=== PATIENT | male | born 2000 | race Caucasian/White ===

== ENCOUNTER 2024-11-02 17:27 | Inpatient (IN) | payer SELFPAY ==
[2024-11-02 17:43] VITALS: BP 129/85; PULSE 89; RESP 18; TEMP 37.1; O2SAT 99
[2024-11-02 17:46] VITALS: BMI 33.0
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
[2024-11-02] MEDS: nicotine 2 mg Gum BUCCAL ×2 (18:15→21:24)
[2024-11-02] MEDS: calcium carbonate 500 mg Chew Tablet 1000 MG PO (21:24)
[2024-11-02] MEDS: trazodone 50 mg Tablet PO (21:24)
[2024-11-02 21:28] VITALS: BP 126/79; PULSE 62; RESP 18; TEMP 36.7; O2SAT 98
[2024-11-03 06:00] VITALS: BP 114/60; PULSE 69; RESP 18; TEMP 36.5; O2SAT 96
[2024-11-03 14:00] VITALS: BP 136/66; PULSE 87; RESP 16; TEMP 36.6; O2SAT 99
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
[2024-11-03] MEDS: nicotine 4 mg lozenge MUCOUS MEM (16:16)
[2024-11-03] MEDS: fluoxetine 10 mg Capsule PO (16:16)
[2024-11-03 19:52] VITALS: BP 132/81; PULSE 77; RESP 18; TEMP 36.8; O2SAT 97
[2024-11-04 06:00] VITALS: BP 127/85; PULSE 91; RESP 18; TEMP 36.5; O2SAT 98; BMI 30.3
[2024-11-04] MEDS: fluoxetine 20 mg Capsule PO (08:38)
--- NOTE | 2024-11-04 12:14 | W.PM.NPUPNS ---
Subjective NPU Subjective: Patient is a 24-year-old male with major depressive disorder admitted with suicidal ideation. The patient continued to endorse having suicidal thoughts. He had reported that he had been isolative. He had described significant stressors being a single father. He had reported some struggles with concentration. He had isolated himself on the milieu and continued to struggle with completion of activities of daily living. He denied any psychotic symptoms at this time. He reported no side effects from the Prozac today. Mental Status Exam MSE Comments: The patient is a casually dressed white male who appeared his stated age. His gait appeared within normal limits. His hygiene was fair. There was no evidence of any abnormal involuntary motor movements, tics, or tremors appreciated. There was prominent psychomotor retardation. His speech was monotone in quality with normal rate and prosody. His thought process was linear ,logical and goal-directed. His thought content showed no evidence of homicidal ideation. He endorsed suicidal ideation with a plan to cut his wrists. There was no clear evidence of delusional thinking. He did not appear to be responding to internal stimuli. His mood was described as depressed. His affect remained restricted in range and mood congruent. His recent and remote memory were grossly intact as he was an adequate historian. He was alert and oriented to person place time and situation. His insight appeared poor. His judgment appeared poor. His impulse control appeared limited. His fund of knowledge appeared average. . His attention span appeared fair. Vitals/I&O/Wt Last Vital Signs Temp 97.7 F 11/04/24 06:00 Pulse 91 11/04/24 06:00 Resp 18 11/04/24 06:00 BP 127/85 11/04/24 06:00 Pulse Ox 98 11/04/24 06:00 O2 Del Method Room Air 11/04/24 06:00 Weight last 48 hrs Weight 95.878 kg Weight 104.326 kg A&P Assessment and plan (1) MDD (major depressive disorder), recurrent severe, without psychosis: Plan 24-year-old male who presents with severe depression with suicidal ideation with 1 previous trial of Effexor for 3 days with some unspecified side effects. He was agreeable to a trial of an antidepressant and would likely benefit from a brief stay here with a long-term plan to begin to support patient with outpatient psychotherapy and medication management in his home area. #1.? Engage patient in individual milieu and group therapy. #2?? Recommend sober living treatment at the highest level of care to which the patient is willing to commit #3???Increase prozac to 20mg daily. #4?? TO-15 minute checks? #5?? Will attempt to gather collateral information Involuntary Hold Information 96 Hour Hold: 96 Hour Involuntary Admission: No Attestations NPU Medical Necessity Statement*: Inpatient hospitalization is medically necessary and deemed to ?be ?the clinically appropriate intervention ?at this time.? We will monitor/initiate medications and make changes as indicated.? The patient?s likely length of stay 3-5 days. Coding Level of Care Code Acute Code for g Fwd Diagnoses MDD (major depressive disorder), recurrent severe, without psychosis F33.2
[2024-11-04 14:00] VITALS: BP 127/75; PULSE 82; RESP 16; TEMP 36.7; O2SAT 98
[2024-11-04] MEDS: calcium carbonate 500 mg Chew Tablet 1000 MG PO (18:42)
[2024-11-04 19:40] VITALS: BP 116/71; PULSE 95; RESP 18; TEMP 36.7; O2SAT 98
[2024-11-04] MEDS: hyDROXYzine 25 mg Capsule 50 MG PO (20:05)
[2024-11-04] MEDS: trazodone 50 mg Tablet PO (20:05)
[2024-11-05 06:00] VITALS: BP 119/81; PULSE 75; RESP 18; TEMP 36.6; O2SAT 99
--- NOTE | 2024-11-05 08:21 | PC.NURSE ---
IN BED RESTING. DENIES SI/HI AND AVH AT THIS TIME. RATES PAIN 5/10 IN BACK BUT DECLINES TAKING ANY PAIN MEDICATIONS. RATES ANXIETY 0/10 AND DEPRESSION 7/10. PROZAC 20 MG WAS RESTARTED AND PT IS TAKING PRESCRIBED. REPORTS HE SLEPT WELL. AFFECT IS FLAT AND DEPRESSED MOOD OBSERVED. ISOLATES AND WITHDRAWN TO ROOM. SUPPORT VOICED.
[2024-11-05] MEDS: fluoxetine 20 mg Capsule PO (08:51)
--- NOTE | 2024-11-05 11:59 | W.PM.NPUPNS ---
Subjective NPU Subjective: Patient presented today reporting that life is okay. He reports he feels a little better than when he came in because he just got off the phone with her friend but otherwise reported that he felt about the same. We discussed the fact that his Prozac had been increased to 20 mg p.o. daily and that we would expect to get some improvement soon. He reports that he was told that it might take up to 6 weeks and we explained that it would take 6 weeks for improvement occur it would take 6 weeks to get to maximum benefit at this dose. He denied any current side effects to the medication and we discussed hopefully looking at discharge in the next 48 hours. Mental Status Exam MSE Comments: This is an overweight versus obese white male in hospital scrubs with limited grooming and eye contact. No abnormal movements except for psychomotor retardation. Mostly cooperative with exam in mild distress. Speech was decreased rate and volume spoken very softly and effeminate. Mood described as about the same, affect slightly subdued. His thought process was linear ,logical and goal-directed. His thought content showed no evidence of homicidal ideation. He endorsed resolving suicidal ideation with a plan to cut his wrists. There was no clear evidence of delusional thinking. He did not appear to be responding to internal stimuli. Attention and concentration were intact and memory appeared reliable but none were formally tested. He was alert and oriented to person place time and situation. His insight appeared poor. His judgment appeared poor. His impulse control appeared limited. His fund of knowledge appeared average. . Vitals/I&O/Wt Last Vital Signs Temp 97.9 F 11/05/24 06:00 Pulse 75 11/05/24 06:00 Resp 18 11/05/24 06:00 BP 119/81 11/05/24 06:00 Pulse Ox 99 11/05/24 06:00 O2 Del Method Room Air 11/05/24 06:00 Weight last 48 hrs Weight 95.878 kg A&P Assessment and plan (1) MDD (major depressive disorder), recurrent severe, without psychosis: Plan 24-year-old male who presents with severe depression with suicidal ideation with 1 previous trial of Effexor for 3 days with some unspecified side effects. He was agreeable to a trial of an antidepressant and would likely benefit from a brief stay here with a long-term plan to begin to support patient with outpatient psychotherapy and medication management in his home area. 1. Encourage individual, group and milieu therapy. 2.??Recommend sober living treatment at the highest level of care to which the patient is willing to commit 3.??Increased prozac to 20mg daily. 4.??Every 15 minute checks for safety? 5.??Will attempt to gather collateral information Involuntary Hold Information 96 Hour Hold: 96 Hour Involuntary Admission: No Attestations NPU Medical Necessity Statement*: Inpatient hospitalization is medically necessary and the clinically appropriate intervention at this time.? We will monitor/initiate medications and make changes as indicated.? The patient?s likely length of stay 3-5 days. Coding Level of Care Code Acute Code for g Fwd Diagnoses MDD (major depressive disorder), recurrent severe, without psychosis F33.2
[2024-11-05 14:00] VITALS: BP 122/75; PULSE 67; RESP 16; TEMP 36.3; O2SAT 98
[2024-11-05 20:06] VITALS: BP 119/67; PULSE 64; RESP 16; TEMP 36.9; O2SAT 98
[2024-11-05] MEDS: acetaminophen 325 mg Tablet 650 MG PO (20:50)
[2024-11-06 06:00] VITALS: BP 94/57; PULSE 67; RESP 16; TEMP 36.4; O2SAT 98
[2024-11-06] MEDS: fluoxetine 20 mg Capsule PO (08:12)
--- NOTE | 2024-11-06 11:45 | W.PM.NPUPNS ---
Subjective NPU Subjective: Patient presented today reporting that he is feeling better and more optimistic about the possibility of discharge. We discussed the risk benefits and alternatives of discharging tomorrow and he understood and agreed to proceed as is documented in this note. We talked about keeping the Prozac at 20 and he reported he was going to call his father to see if his father could come from [place] he [place] and pick him up. We discussed working with the social work team with appointments and follow-up. He denied any side effects to the medication and reported that he was feeling a significant bit better. Mental Status Exam MSE Comments: This is an overweight versus obese white male in hospital scrubs with limited grooming and eye contact. No abnormal movements except for mild psychomotor retardation. Mostly cooperative with exam in mild distress. Speech was decreased rate and volume spoken very softly and effeminate. Mood described as better, affect slightly subdued but brighter with a reactive affect. His thought process was linear ,logical and goal-directed. He denied suicidal or homicidal ideation. There was no clear evidence of delusional thinking. He did not appear to be responding to internal stimuli. Attention and concentration were intact and memory appeared reliable but none were formally tested. He was alert and oriented to person place time and situation. His insight appeared poor. His judgment appeared poor. His impulse control appeared limited. His fund of knowledge appeared average. . Vitals/I&O/Wt Last Vital Signs Temp 97.6 F 11/06/24 06:00 Pulse 67 11/06/24 06:00 Resp 16 11/06/24 06:00 BP 94/57 11/06/24 06:00 Pulse Ox 98 11/06/24 06:00 O2 Del Method Room Air 11/06/24 06:00 A&P Assessment and plan (1) MDD (major depressive disorder), recurrent severe, without psychosis: Plan 24-year-old male who presents with severe depression with suicidal ideation with 1 previous trial of Effexor for 3 days with some unspecified side effects. He was agreeable to a trial of an antidepressant and would likely benefit from a brief stay here with a long-term plan to begin to support patient with outpatient psychotherapy and medication management in his home area. 1. Encourage individual, group and milieu therapy. 2.??Recommend sober living treatment at the highest level of care to which the patient is willing to commit 3.??Increased prozac to 20mg daily. 4.??Every 15 minute checks for safety? 5.??Tentative plan for discharge in the morning. Involuntary Hold Information 96 Hour Hold: 96 Hour Involuntary Admission: No Attestations NPU Medical Necessity Statement*: Inpatient hospitalization is medically necessary and the clinically appropriate intervention at this time.? We will monitor/initiate medications and make changes as indicated.? Tentative plan for discharge tomorrow.. Coding Level of Care Code Acute Code for Chg Fwd Diagnoses MDD (major depressive disorder), recurrent severe, without psychosis F33.2
[2024-11-06] MEDS: ibuprofen 600 mg Tablet PO (12:37)
[2024-11-06 13:57] VITALS: BP 114/79; PULSE 89; RESP 17; O2SAT 97
[2024-11-06 19:56] VITALS: BP 123/64; PULSE 77; RESP 18; TEMP 36.7; O2SAT 99
[2024-11-06] MEDS: calcium carbonate 500 mg Chew Tablet 1000 MG PO (20:24)
[2024-11-07 06:00] VITALS: BP 118/78; PULSE 65; RESP 18; TEMP 36.4; O2SAT 99
[2024-11-07] MEDS: fluoxetine 20 mg Capsule PO (09:14)
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
[2024-11-07 11:10] VITALS: BP 118/78; PULSE 65; RESP 18; TEMP 36.4; O2SAT 98
== END 2024-11-07 11:33 | disposition home or self-care (01) | DRG 885 ==
PROVIDERS: Admitting Provider Psychiatry & Neurology Psychiatry; Visit Provider Psychiatry & Neurology Psychiatry
DX: F33.2 Major depressive disorder, recurrent severe without psychotic features (principal); R45.851 Suicidal ideations; F12.90 Cannabis use, unspecified, uncomplicated; Z81.8 Family history of other mental and behavioral disorders
CPT/HCPCS: 97150; 97165